=== PATIENT | female | born 1975 | race Caucasian/White ===

== ENCOUNTER 2016-12-26 11:58 | Emergency (ER) | payer BC ==
[~2016-12-26] VITALS: Ht 165.1 cm; Wt 68.4 kg
[~2016-12-26 11:58] MED LIST: CIPRO500 MG PO; DILAUDID4 MG PO; FLAGYL500 MG PO; Feosol PO; LEVOTHYROXINE50 MCG PO; Levothroid,Synthroid PO; Motrin PO; NATALCARE RX1 TABLET PO; ZOFRAN4 MG PO
[2016-12-26] MEDS ORDERED: PREDNISONE20 MG PO (14:22)
[2016-12-26] MEDS ORDERED: FLEXERIL10 MG PO (14:22)
[2016-12-26 15:20] VITALS: BP 128/71
== END 2016-12-26 15:20 | disposition home or self-care (01) ==
LOC: EME 11:58
DX: M54.41 Lumbago with sciatica, right side (principal); R35.0 Frequency of micturition; E03.9 Hypothyroidism, unspecified
CPT/HCPCS: 72110; 99281; 99284; J7512

== ENCOUNTER 2017-01-08 11:26 | Day surgery (SDC) | payer BC ==
[~2017-01-08] VITALS: Ht 160 cm; Wt 67.1 kg
[~2017-01-08 11:26] MED LIST changes: +FLEXERIL10 MG PO; +PREDNISONE20 MG PO; +SYNTHROID150 MCG PO; +TYLENOL REGULA325 MG PO; +VITAMIN D5000 UNI1 PO
[2017-01-08 12:22] VITALS: BP 113/63
[2017-01-08] MEDS ORDERED: PERCOCET 5/31 TABLET PO (14:30)
[2017-01-08 15:07] VITALS: BP 119/72
[2017-01-08 16:00] VITALS: BP 104/55
[2017-01-08 17:25] VITALS: BP 110/65
== END 2017-01-08 17:25 | disposition home or self-care (01) ==
LOC: SDC 11:26
PROC: 06BY0ZC Excision of Hemorrhoidal Plexus, Open Approach (ICD-10-PCS; principal; 2017-01-08)
DX: K64.9 Unspecified hemorrhoids (principal); K64.4 Residual hemorrhoidal skin tags; J45.909 Unspecified asthma, uncomplicated; K21.9 Gastro-esophageal reflux disease without esophagitis; E03.9 Hypothyroidism, unspecified; F41.8 Other specified anxiety disorders
CPT/HCPCS: 88304; J0131; J1100; J1170; J2250; J2405; J3010